=== PATIENT | female | born 1930 | race Caucasian/White ===

== ENCOUNTER 2017-04-02 09:00 | Inpatient (IN) | payer MEDICARE, BC ==
[~2017-04-02 09:00] MED LIST: ASAB PO; CALTRA600D PO; CENTRUM TAB1 TAB PO; FISH-EPA1000 MG PO; HYDROCHLOROT12.5 MG PO; LOP25 PO; PRAVAC PO; PRESERVISION PO
[2017-04-02 12:44] LABS: BASOPHILS 0.2 %; BASOPHILS ABSOLUTE 0.02 10/3/uL (0.0-0.16); EOSINOPHILS ABSOLUTE 0.17 10/3/uL (0.0-0.53); HEMATOCRIT 29.9 % (36.0-48.0); HEMOGLOBIN 9.7 g/dL (12.0-16.0); IMMATURE GRANULOCYTES 0.5 %; IMMATURE GRANULOCYTES ABSOLUTE 0.04 10/3/uL (0.0-0.11); LYMPHOCYTES 13.6 %; LYMPHOCYTES ABSOLUTE 1.18 10/3/uL (0.67-4.30); MEAN CORPUS HGB CONC 32.4 g/dL (32.0-36.0); MEAN CORPUSCULAR HEMOGLOB 29.1 pg (26.0-34.0); MEAN CORPUSCULAR VOLUME 89.8 fL (80-100); MEAN PLATELET VOLUME 9.1 fL (9.2-13.0); MONOCYTES 6.9 %; NEUTROPHILS 76.8 %; NEUTROPHILS ABSOLUTE 6.68 10/3/uL (2.02-8.40); PLATELET COUNT 415 10/3/uL (150-400); RBC DISTRIBUTION WIDTH 14.6 % (12.0-16.0); RED CELL COUNT 3.33 10/6/uL (4.0-5.6); WHITE BLOOD CELLS 8.7 10/3/uL (4.5-10.5)
[2017-04-02 12:45] LABS: MANUAL DIFF NO %
[2017-04-02 12:59] LABS: CALCIUM, SERUM 9.1 MG/DL (8.5-10.4); CHLORIDE, SERUM 104 MMOL/L (96-112); CO2 (CARBON DIOXIDE) 30 MMOL/L (24-34); CREATININE 0.76 MG/DL (0.55-1.02); GFR AFRICAN AMERICAN 82 ML/MIN (>=60); GFR NON AFRICAN AMERICAN 71 ML/MIN (>=60); GLUCOSE, SERUM 96 MG/DL (60-99); POTASSIUM, SERUM 4.9 MMOL/L (3.5-5.3); SODIUM, SERUM 140 MMOL/L (135-148); TRIGLYCERIDE 150 MG/DL (< 150)
[2017-04-02 13:00] LABS: BUN (BLOOD UREA NITROGEN) 17 MG/DL (6-23); CHOL/HDL RATIO(NOT ORDER) 2.3 (0-5); CHOLESTEROL 116 MG/DL (< 200); HDL CHOLESTEROL 50 MG/DL (> 49); LDL CHOLESTEROL 36 MG/DL (< 130); NON-HDL CHOLESTEROL 66 MG/DL (< 160)
[2017-04-02] MEDS ORDERED: COZ50 PO (14:40)
[2017-04-02] MEDS ORDERED: MOBIC7.5 PO (14:41)
[2017-04-03 04:43] LABS: HEMATOCRIT 30.6 % (36.0-48.0)
[2017-04-03 04:56] LABS: BUN (BLOOD UREA NITROGEN) 16 MG/DL (6-23); CALCIUM, SERUM 8.7 MG/DL (8.5-10.4); CHLORIDE, SERUM 103 MMOL/L (96-112); CO2 (CARBON DIOXIDE) 27 MMOL/L (24-34); CREATININE 0.68 MG/DL (0.55-1.02); GFR AFRICAN AMERICAN 91 ML/MIN (>=60); GFR NON AFRICAN AMERICAN 79 ML/MIN (>=60); GLUCOSE, SERUM 89 MG/DL (60-99); POTASSIUM, SERUM 4.1 MMOL/L (3.5-5.3); SODIUM, SERUM 141 MMOL/L (135-148)
[2017-04-03] MEDS ORDERED: NITROQUICK0.4 MG SL (12:59)
[2017-04-03] MEDS ORDERED: PLAVIX PO (12:59)
== END 2017-04-03 13:00 | disposition home or self-care (01) | DRG 247 ==
LOC: CORLMH 09:00 → SSU1 11:55
PROVIDERS: Internal Medicine Cardiovascular Disease
PROC: 027034Z Dilation of Coronary Artery, One Artery with Drug-eluting Intraluminal Device, Percutaneous Approach (ICD-10-PCS; principal; 2017-04-02)
PROC: 4A023N7 Measurement of Cardiac Sampling and Pressure, Left Heart, Percutaneous Approach (ICD-10-PCS; 2017-04-02)
PROC: B2111ZZ Fluoroscopy of Multiple Coronary Arteries using Low Osmolar Contrast (ICD-10-PCS; 2017-04-02)
PROC: B2151ZZ Fluoroscopy of Left Heart using Low Osmolar Contrast (ICD-10-PCS; 2017-04-02)
DX: I21.4 Non-ST elevation (NSTEMI) myocardial infarction (principal); I34.0 Nonrheumatic mitral (valve) insufficiency; I35.0 Nonrheumatic aortic (valve) stenosis; I10 Essential (primary) hypertension; I25.10 Atherosclerotic heart disease of native coronary artery without angina pectoris; Z82.49 Family history of ischemic heart disease and other diseases of the circulatory system; I25.2 Old myocardial infarction
CPT/HCPCS: 80048; 80061; 85014; 85018; 85025; 93005; 93458; 99152; 99153; A9270-GY; C1725; C1769; C1874; C1887; C1894; C9600; J0583; J2250; J2370; J3010; Q9967